=== PATIENT | female | born 1980 | race Caucasian/White ===

== ENCOUNTER 2016-06-06 01:09 | Emergency (ER) | payer MEDICAID, OTHER ==
[2016-06-06] MEDS ORDERED: LIDOCAINE 2% 20 ML ONE (01:43)
== END 2016-06-06 02:13 | disposition home or self-care (01) ==
LOC: ER 01:09
DX: H60.502 Unspecified acute noninfective otitis externa, left ear (principal); F17.210 Nicotine dependence, cigarettes, uncomplicated; E03.9 Hypothyroidism, unspecified; Z79.899 Other long term (current) drug therapy; Z85.850 Personal history of malignant neoplasm of thyroid